=== PATIENT | female | born 1945 | race Caucasian/White ===

== ENCOUNTER 2023-04-04 10:04 | Outpatient (CLI) | payer MEDICARE | END 2023-04-04 10:05 | disposition home or self-care (01) | LOC: CSHRAD 10:04 | PROVIDERS: ATTEND Neurological Surgery | DX: S12.101A Unspecified nondisplaced fracture of second cervical vertebra, initial encounter for closed fracture (principal); M47.812 Spondylosis without myelopathy or radiculopathy, cervical region | CPT/HCPCS: 72040 ==

== ENCOUNTER 2023-04-18 10:50 | Outpatient (CLI) | payer MEDICARE | END 2023-04-18 10:51 | disposition home or self-care (01) | LOC: CSHRAD 10:50 | PROVIDERS: ATTEND Physician Assistant | DX: S12.9XXD Fracture of neck, unspecified, subsequent encounter (principal); M47.812 Spondylosis without myelopathy or radiculopathy, cervical region; M43.12 Spondylolisthesis, cervical region | CPT/HCPCS: 72050 ==